=== PATIENT | male | born 1945 | race Caucasian/White ===

== ENCOUNTER 2021-05-09 10:49 | Inpatient (IN) ==
[2021-05-09] MEDS ORDERED: NITROGLYCERIN SL 0.4 MG TABLET SL PRN (11:37)
[2021-05-09] MEDS ORDERED: NICOTINE 14 MG/24 HR PATCH TRANSDERM PRN (11:37)
[2021-05-09] MEDS ORDERED: GLUCAGON 1 MG VIAL IM PRN (11:37)
[2021-05-09] MEDS ORDERED: DEXTROSE 50% 25 GM/50 ML VIAL IV PRN (11:37)
[2021-05-09] MEDS ORDERED: CLORAZEPATE 3.75 MG TABLET PO PRN (11:37)
[2021-05-09] MEDS ORDERED: MORPHINE 2 MG/1 ML SYRINGE IV PRN (11:37)
[2021-05-09] MEDS ORDERED: hydrALAZINE 20 MG/1 ML VIAL IV PRN (11:48)
[2021-05-09 16:57] LABS: Blood Urea Nitrogen 17 MG/DL (7-18); Calcium 8.9 MG/DL (8.5-10.1); Carbon Dioxide 29 MMOL/L (21-32); Glucose 91 MG/DL (74-106); Osmolality,Calculated 284.1 MOS/KG (273-304); Potassium 3.9 MMOL/L (3.5-5.1); Sodium 142 MMOL/L (136-145)
[2021-05-09 17:15] LABS: Estimated Glom Filtration Rate 0 ML/MIN
[2021-05-10 05:06] LABS: Basophils % 0.2 % (0.0-0.8); Eosinophils # 0.1 10*3/uL (0.0-0.87); Eosinophils % 1.4 % (0.00-10.9); Hematocrit 34.6 VOL% (42.0-52.0); Immature Granulocytes % 0.4 %; Immature Granulocytes Absolute 0.02 #; Lymphocytes # 1.6 10*3/uL (1.4-4.0); Lymphocytes % 31.7 % (21.2-54.2); Mean Corpuscular HGB Conc 31.8 GM/DL (32-36); Mean Corpuscular Volume 97.2 FL (87-102); Mean Platelet Volume 14.1 FL (9.6-12.0); Neutrophils % 59.3 % (38.7-73.9); Red Blood Count 3.56 MC/CUMM (3.8-5.5); Red Cell Distribution Width 14.1 % (9.3-17.3)
[2021-05-10 05:13] LABS: Platelet Count 72 T/CUMM (130-400)
[2021-05-10 05:17] LABS: ABG Base Excess 1.1 MMOL/L (-2.5-2.5); ABG HCO3 25.4 MMOL/L (20-26); ABG Oxygen Saturation 98.4 % (95-100); ABG PCO2 40.6 MM HG (35-48); Allen Test Positive
[2021-05-10 05:31] LABS: Alanine Aminotransferase 18 U/L (16-61); Albumin 3.3 G/DL (3.4-5.0); Alkaline Phosphatase 63 U/L (45-117); Aspartate Amino Transferase 13 U/L (0-37); Blood Urea Nitrogen 15 MG/DL (7-18); Calcium 9.2 MG/DL (8.5-10.1); Carbon Dioxide 26 MMOL/L (21-32); Estimated Glom Filtration Rate 77 ML/MIN; Glucose 118 MG/DL (74-106); Osmolality,Calculated 282.3 MOS/KG (273-304); Potassium 3.9 MMOL/L (3.5-5.1); Sodium 141 MMOL/L (136-145); Total Protein 6.8 G/DL (6.4-8.2)
[2021-05-10 05:37] LABS: Microcytosis 1+; Ovalocytes Few; Platelet Estimate Decreased
[2021-05-10] MEDS: CHLORHEXIDINE 0.12% ORAL RINSE 60 ML BOTTLE SWISH/SPIT SCH ×2 (09:27→21:11)
[2021-05-10] MEDS: CHLORHEXIDINE 4% SOLN 118 ML BOTTLE TOP SCH ×3 (09:27→21:12)
[2021-05-10] MEDS: oxyCODONE/ACETAMINOPHEN 5-325 MG TABLET PO PRN ×2 (09:27→19:18)
[2021-05-10] MEDS ORDERED: SODIUM CHLORIDE 0.9% 1,000 ML IV SCH (12:00)
[2021-05-10] MEDS: GABAPENTIN 300 MG CAPSULE PO SCH ×2 (14:58→21:11)
[2021-05-11] MEDS ORDERED: VANCOMYCIN 500 MG VIAL ONE (04:45)
[2021-05-11] MEDS ORDERED: VANCOMYCIN 1,000 MG VIAL ONE (04:45)
[2021-05-11] MEDS ORDERED: PAPAVERINE 60 MG/2 ML VIAL ONE (04:45)
[2021-05-11] MEDS ORDERED: CEFUROXIME INJ 1,500 MG in SODIUM CHLORIDE 0.9% 100 ML IV ONE (05:00)
[2021-05-11] MEDS ORDERED: FAMOTIDINE 20 MG TABLET PO ONE (05:23)
[2021-05-11] MEDS ORDERED: DIAZEPAM 5 MG TABLET PO ONE (05:23)
[2021-05-11 05:51] LABS: Basophils % 0.2 % (0.0-0.8); Eosinophils # 0.1 10*3/uL (0.0-0.87); Eosinophils % 1.1 % (0.00-10.9); Hematocrit 32.3 VOL% (42.0-52.0); Hemoglobin 10.8 GM/DL (14.0-18.0); Immature Granulocytes % 0.4 %; Immature Granulocytes Absolute 0.02 #; Lymphocytes # 1.8 10*3/uL (1.4-4.0); Lymphocytes % 37.4 % (21.2-54.2); Mean Corpuscular HGB Conc 33.4 GM/DL (32-36); Mean Corpuscular Volume 93.1 FL (87-102); Mean Platelet Volume 14.1 FL (9.6-12.0); Monocytes % 6.9 % (1.7-12.7); Platelet Count 76 T/CUMM (130-400); Red Blood Count 3.47 MC/CUMM (3.8-5.5); Red Cell Distribution Width 13.8 % (9.3-17.3); White Blood Count 4.8 T/CUMM (4-12)
[2021-05-11] MEDS ORDERED: VECURONIUM 10 MG VIAL IV ONE ×4 (06:05→07:57)
[2021-05-11] MEDS ORDERED: MIDAZOLAM 10 MG/2 ML VIAL ONE ×4 (06:05→09:10)
[2021-05-11] MEDS ORDERED: ETOMIDATE 40 MG/20 ML VIAL IV ONE (06:06)
[2021-05-11] MEDS ORDERED: SUFentanil 250 MCG/5 ML AMP ONE (06:06)
[2021-05-11 06:12] LABS: Hypochromasia Slight; Microcytosis Slight; Platelet Estimate Decreased
[2021-05-11] MEDS ORDERED: LIDOCAINE 2% 5 ML VIAL ONE ×2 (06:18→10:29)
[2021-05-11] MEDS ORDERED: SODIUM CHLORIDE 0.9% 1,000 ML IV ONE (06:18)
[2021-05-11] MEDS ORDERED: LACTATED RINGERS 1,000 ML IV ONE (06:18)
[2021-05-11] MEDS ORDERED: SEVOFLURANE 1 UNIT/15 MINUTE INH ONE ×2 (06:18→09:15)
[2021-05-11] MEDS ORDERED: SODIUM CHLORIDE 0.9% 250 ML IV ONE ×2 (06:18→09:16)
[2021-05-11] MEDS ORDERED: AMINOCAPROIC ACID 5,000 MG/20 ML VIAL ONE (06:18)
[2021-05-11] MEDS ORDERED: PHENYLEPHRINE 10 MG/1 ML VIAL IV ONE (06:19)
[2021-05-11 06:31] LABS: Calcium 9.5 MG/DL (8.5-10.1); Osmolality,Calculated 274.7 MOS/KG (273-304); Potassium 4.2 MMOL/L (3.5-5.1)
[2021-05-11] MEDS ORDERED: ePHEDrine 50 MG/ML VIAL ONE (07:01)
[2021-05-11 07:41] LABS: ABG Base Excess -0.5 MMOL/L (-2.5-2.5); ABG PCO2 39.1 MM HG (35-48); ABG PH 7.398 (7.35-7.45); ABG TCO2 21.9 MMOL/L (23-27); Glucose Heart Surgery 128 MG/DL (74-106); Hematocrit Heart Surgery 31.9 PERCENT (42-52); Hemoglobin Heart Surgery 10.3 G/DL (14.0-18.0); Ionized Calcium Arterial 1.25 MMOL/L (1.21-1.46); PCO2 Patient Temp Arterial 39.1 MMHG; PH Patient Temp Arterial 7.398; Patient Temperature 37 CELCIUS; Potassium Heart/CVR 3.6 MMOL/L (3.5-5.1); Sodium Heart/CVR 140 MMOL/L (135-145)
[2021-05-11 07:53] LABS: Bilirubin,Urine Negative (Negative); Blood, Urine Small mg/dL (Negative); Glucose,Urine (UA) Negative (Negative); Ketones,Urine Negative (Negative); Mucus,Urine Occasional /LPF (Occasional); Nitrite,Urine Negative (Negative); Protein,Urine Negative; RBC,Urine 1 /HPF (0-4); Urine Appearance CLEAR (Clear); Urine Color Straw (Yellow); Urine Specific Gravity 1.009 (1.001-1.035); Urine Urobilinogen < 2.0 EU/DL (0.2-1.0)
[2021-05-11] MEDS ORDERED: NITROPRUSSIDE 50 MG/2 ML VIAL ONE (08:20)
[2021-05-11] MEDS ORDERED: PHENYLEPHRINE DRIP 40 MG/250 ML PREMIX IV ONE (08:20)
[2021-05-11] MEDS ORDERED: POTASSIUM CHLORIDE RIDER 20 MEQ/100 ML PREMIX IV ONE (08:20)
[2021-05-11] MEDS ORDERED: SUFentanil 50 MCG/ML AMP ONE ×3 (08:44→10:23)
[2021-05-11] MEDS ORDERED: CALCIUM CHLORIDE 1,000 MG/10 ML VIAL IV ONE (09:10)
[2021-05-11] MEDS ORDERED: NITROGLYCERIN DRIP 50 MG/250 ML BOTTLE IV ONE (09:11)
[2021-05-11 09:13] LABS: Hematocrit Heart Surgery 22.6 PERCENT (42-52); Hemoglobin Heart Surgery 7.2 G/DL (14.0-18.0); PCO2 Patient Temp Venous 33.8 MM HG; PH Patient Temp Venous 7.456; PO2 Patient Temp Venous 37.8 MM HG; Potassium Heart/CVR 4.5 MMOL/L (3.5-5.1); VBG Base Excess 0.3 MEQ/L (0-4); VBG HCO3 24.5 MEQ/L (24-28); VBG Oxygen Saturation 81.5 %; VBG PCO2 37.3 MMHG (41-51); VBG PH 7.426; VBG PO2 43.4 MMHG (17-40); VBG Total CO2 23.1 MMOL/L
[2021-05-11] MEDS ORDERED: HEPARIN/NACL 0.9% 2 UNITS/ML 1,000 UNIT/500 ML BAG IV ONE (09:22)
[2021-05-11] MEDS ORDERED: MINERAL OIL/PETROLATUM OPH OINT 3.5 GM TUBE ONE (09:44)
[2021-05-11 09:50] LABS: Hematocrit Heart Surgery 23.4 PERCENT (42-52); Hemoglobin Heart Surgery 7.5 G/DL (14.0-18.0); PCO2 Patient Temp Venous 30.6 MM HG; PH Patient Temp Venous 7.483; Potassium Heart/CVR 3.7 MMOL/L (3.5-5.1); VBG Base Excess -0.1 MEQ/L (0-4); VBG HCO3 24.2 MEQ/L (24-28); VBG Oxygen Saturation 82.8 %; VBG PCO2 33.7 MMHG (41-51); VBG PH 7.453; VBG PO2 43.6 MMHG (17-40); VBG Total CO2 22.1 MMOL/L
[2021-05-11] MEDS ORDERED: DEXTROSE 5% KCL 20 MEQ 20 MEQ/1,000 ML BAG IV ONE (10:29)
[2021-05-11] MEDS ORDERED: PROTAMINE SULFATE 250 MG/25 ML VIAL IV ONE (10:29)
[2021-05-11] MEDS ORDERED: MAGNESIUM SULFATE 5 GM/10 ML VIAL IV ONE (10:29)
[2021-05-11] MEDS ORDERED: MANNITOL 100 GM/500 ML BAG IV ONE (10:29)
[2021-05-11] MEDS ORDERED: ALBUMIN 25% 25 GM/100 ML VIAL IV ONE (10:29)
[2021-05-11] MEDS ORDERED: methylPREDNISolone SOD SUC 1,000 MG/8 ML VIAL ONE (10:29)
[2021-05-11] MEDS ORDERED: HEPARIN 10,000 UNIT/10 ML VIAL ONE (10:30)
[2021-05-11] MEDS ORDERED: FUROSEMIDE 20 MG/2 ML VIAL ONE (10:30)
[2021-05-11] MEDS ORDERED: SODIUM BICARBONATE 50 MEQ/50 ML VIAL IV ONE (10:30)
[2021-05-11] MEDS ORDERED: PROTAMINE SULFATE 50 MG/5 ML VIAL IV ONE (10:30)
[2021-05-11 10:40] LABS: ABG Base Excess 1.4 MMOL/L (-2.5-2.5); ABG HCO3 25.7 MMOL/L (20-26); ABG PCO2 40.1 MM HG (35-48); ABG PH 7.419 (7.35-7.45); ABG TCO2 23.9 MMOL/L (23-27); Glucose Heart Surgery 272 MG/DL (74-106); Hematocrit Heart Surgery 27.4 PERCENT (42-52); Hemoglobin Heart Surgery 8.8 G/DL (14.0-18.0); Ionized Calcium Arterial 1.18 MMOL/L (1.21-1.46); PCO2 Patient Temp Arterial 40.1 MMHG; PH Patient Temp Arterial 7.419; Patient Temperature 37 CELCIUS; Potassium Heart/CVR 3.6 MMOL/L (3.5-5.1); Sodium Heart/CVR 137 MMOL/L (135-145)
[2021-05-11] MEDS ORDERED: SODIUM CHLORIDE 0.45% 1,000 ML IV SCH ×2 (11:16)
[2021-05-11] MEDS ORDERED: DEXTROSE 50% 25 GM/50 ML VIAL IV PRN ×2 (11:16)
[2021-05-11] MEDS ORDERED: INSULIN REGULAR 100 UNIT/ML IV PRN (11:16)
[2021-05-11] MEDS ORDERED: MAGNESIUM SULF RIDER 4 GM/100 ML PREMIX IV PRN (11:16)
[2021-05-11] MEDS ORDERED: IBUPROFEN 100 MG/5 ML UDCUP PO PRN (11:16)
[2021-05-11] MEDS ORDERED: ALBUMIN 5% 12.5 GM/250 ML VIAL IV PRN (11:16)
[2021-05-11] MEDS ORDERED: PHENYLEPHRINE DRIP 40 MG/250 ML PREMIX IV PRN (11:16)
[2021-05-11] MEDS ORDERED: VECURONIUM 10 MG VIAL IV PRN ×2 (11:16)
[2021-05-11] MEDS ORDERED: INSULIN REGULAR 100 UNIT/ML IV ONE (11:16)
[2021-05-11] MEDS ORDERED: MAGNESIUM SULF RIDER 2 GM/50 ML PREMIX IV PRN (11:16)
[2021-05-11] MEDS ORDERED: MIDAZOLAM 2 MG/2 ML VIAL IV PRN (11:16)
[2021-05-11] MEDS ORDERED: LACTATED RINGERS 250 ML IV PRN (11:16)
[2021-05-11] MEDS ORDERED: INSULIN REGULAR DRIP 100 ML IV SCH (11:16)
[2021-05-11] MEDS ORDERED: CALCIUM CHLORIDE 1,000 MG/10 ML SYRINGE IV PRN (11:16)
[2021-05-11] MEDS ORDERED: MIDAZOLAM 10 MG/2 ML VIAL IV PRN (11:16)
[2021-05-11] MEDS ORDERED: CHLORHEXIDINE 4% SOLN 118 ML BOTTLE TOP PRN (11:16)
[2021-05-11] MEDS ORDERED: NITROPRUSSIDE 100 MG in DEXTROSE 5% 250 ML IV PRN (11:16)
[2021-05-11] MEDS ORDERED: ONDANSETRON 4 MG/2 ML VIAL IV PRN (11:16)
[2021-05-11 11:42] LABS: ABG Base Excess 3.1 MMOL/L (-2.5-2.5); ABG Oxygen Saturation 98.6 % (95-100); ABG PCO2 38.5 MM HG (35-48); ABG PH 7.463 (7.35-7.45); ABG PO2 205.6 MM HG (80-95); ABG TCO2 28.1 MMOL/L (23-27); Glucose Heart Surgery 258 MG/DL (74-106); Hemoglobin Heart Surgery 10.4 G/DL (14.0-18.0); Potassium Heart/CVR 3.8 MMOL/L (3.5-5.1)
[2021-05-11 11:47] LABS: Basophils % 0.1 % (0.0-0.8); Eosinophils % 0.1 % (0.00-10.9); Hematocrit 28.6 VOL% (42.0-52.0); Hemoglobin 9.5 GM/DL (14.0-18.0); Immature Granulocytes % 0.7 %; Immature Granulocytes Absolute 0.05 #; Lymphocytes # 0.6 10*3/uL (1.4-4.0); Lymphocytes % 9.3 % (21.2-54.2); Mean Corpuscular HGB Conc 33.2 GM/DL (32-36); Mean Corpuscular Volume 91.1 FL (87-102); Mean Platelet Volume 12.8 FL (9.6-12.0); Neutrophils % 85.8 % (38.7-73.9); Platelet Count 85 T/CUMM (130-400); Red Blood Count 3.14 MC/CUMM (3.8-5.5); Red Cell Distribution Width 14.1 % (9.3-17.3); White Blood Count 6.8 T/CUMM (4-12)
[2021-05-11] MEDS: POTASSIUM CHLORIDE RIDER 20 MEQ/100 ML PREMIX IV PRN ×3 (11:55→17:32)
[2021-05-11 11:56] LABS: INR 1.1; PT Patient Result 12.4 SECS (10.5-12.0); Partial Thromboplastin Time 27.1 SECS (23.9-33.8)
[2021-05-11 12:08] LABS: Anisocytosis 1+; Band Neutrophils 9 % (0-10); Eosinophils 1 % (0-10); Lymphocytes 7 % (20-55); Platelet Estimate Decreased; Segmented Neutrophils 79 % (50-85); Total Cells Counted 100
[2021-05-11 12:09] LABS: Misc Morphology 5S; Ovalocytes Few
[2021-05-11 12:16] LABS: CKMB % 5.3 %
[2021-05-11 12:17] LABS: High Sensitive Troponin I* 3128.2 ng/L (0-78)
[2021-05-11 12:23] LABS: Albumin 3.7 G/DL (3.4-5.0); Bilirubin,Total 0.8 MG/DL (0.20-1.00); Calcium 9.7 MG/DL (8.5-10.1); Osmolality,Calculated 286.4 MOS/KG (273-304); Potassium 3.8 MMOL/L (3.5-5.1); Total Protein 6.6 G/DL (6.4-8.2)
[2021-05-11] MEDS: LACTATED RINGERS 1,000 ML IV PRN ×3 (12:45→17:38)
[2021-05-11] MEDS: POTASSIUM CHLORIDE RIDER 10 MEQ/100 ML PREMIX IV PRN ×2 (13:29→18:03)
[2021-05-11 14:01] LABS: ABG Base Excess 4.4 MMOL/L (-2.5-2.5); ABG HCO3 28.4 MMOL/L (20-26); ABG Oxygen Saturation 99.6 % (95-100); ABG PCO2 46.5 MM HG (35-48); ABG PH 7.412 (7.35-7.45); ABG TCO2 27.1 MMOL/L (23-27); Glucose Heart Surgery 224 MG/DL (74-106); Hematocrit Heart Surgery 29.3 PERCENT (42-52); Hemoglobin Heart Surgery 9.5 G/DL (14.0-18.0); Potassium Heart/CVR 3.8 MMOL/L (3.5-5.1)
[2021-05-11] MEDS ORDERED: DEXMEDETOMIDINE 200 MCG in SODIUM CHLORIDE 0.9% 48 ML IV PRN (15:02)
[2021-05-11] MEDS: MORPHINE 10 MG/1 ML VIAL IV PRN (15:15)
[2021-05-11 15:54] LABS: ABG Base Excess 3.6 MMOL/L (-2.5-2.5); ABG HCO3 27.7 MMOL/L (20-26); ABG Oxygen Saturation 99.3 % (95-100); ABG PCO2 46.9 MM HG (35-48); ABG TCO2 26.5 MMOL/L (23-27); Glucose Heart Surgery 216 MG/DL (74-106); Hematocrit Heart Surgery 30.4 PERCENT (42-52); Hemoglobin Heart Surgery 9.8 G/DL (14.0-18.0)
[2021-05-11 17:06] LABS: ABG Base Excess 4.3 MMOL/L (-2.5-2.5); ABG HCO3 28.3 MMOL/L (20-26); ABG Oxygen Saturation 99.3 % (95-100); ABG PCO2 45.9 MM HG (35-48); ABG PH 7.415 (7.35-7.45); Glucose Heart Surgery 191 MG/DL (74-106); Hematocrit Heart Surgery 28.7 PERCENT (42-52); Hemoglobin Heart Surgery 9.3 G/DL (14.0-18.0); Potassium Heart/CVR 3.9 MMOL/L (3.5-5.1)
[2021-05-11 18:05] LABS: ABG Base Excess 3.9 MMOL/L (-2.5-2.5); ABG HCO3 27.9 MMOL/L (20-26); ABG Oxygen Saturation 99.5 % (95-100); ABG PH 7.462 (7.35-7.45); ABG TCO2 25.4 MMOL/L (23-27)
[2021-05-11] MEDS: CEFUROXIME INJ 1,500 MG in SODIUM CHLORIDE 0.9% 100 ML IV SCH (18:40)
[2021-05-11 19:06] LABS: ABG Base Excess 2.4 MMOL/L (-2.5-2.5); ABG HCO3 26.6 MMOL/L (20-26); ABG Oxygen Saturation 98.6 % (95-100); ABG PCO2 43.1 MM HG (35-48); ABG TCO2 24.8 MMOL/L (23-27); Glucose Heart Surgery 184 MG/DL (74-106); Hematocrit Heart Surgery 31.8 PERCENT (42-52); Hemoglobin Heart Surgery 10.3 G/DL (14.0-18.0); Potassium Heart/CVR 4.2 MMOL/L (3.5-5.1)
[2021-05-11 19:28] LABS: CKMB % 4.8 %
[2021-05-11] MEDS ORDERED: FUROSEMIDE 40 MG/4 ML VIAL IV PRN (19:28)
[2021-05-11] MEDS: GABAPENTIN 300 MG CAPSULE PO SCH (19:36)
[2021-05-11] MEDS: CHLORHEXIDINE 0.12% ORAL RINSE 60 ML BOTTLE SWISH/SPIT SCH (19:36)
[2021-05-11] MEDS: KETOROLAC 30 MG/1 ML VIAL IV SCH (19:46)
[2021-05-11] MEDS ORDERED: CHLORHEXIDINE 0.12% ORAL RINSE 60 ML BOTTLE SWISH/SPIT SCH (21:00)
[2021-05-11] MEDS ORDERED: DEXMEDETOMIDINE 400 MCG in SODIUM CHLORIDE 0.9% 96 ML IV PRN (22:00)
[2021-05-12 00:20] LABS: ABG Base Excess 3.5 MMOL/L (-2.5-2.5); ABG HCO3 27.4 MMOL/L (20-26); ABG Oxygen Saturation 97.4 % (95-100); ABG PCO2 38.9 MM HG (35-48); ABG PH 7.465 (7.35-7.45); ABG PO2 99.1 MM HG (80-95); ABG TCO2 28.6 MMOL/L (23-27); Glucose Heart Surgery 142 MG/DL (74-106); Hemoglobin Heart Surgery 10.9 G/DL (14.0-18.0); Potassium Heart/CVR 3.9 MMOL/L (3.5-5.1)
[2021-05-12] MEDS: KETOROLAC 30 MG/1 ML VIAL IV SCH ×4 (00:53→18:33)
[2021-05-12] MEDS: MORPHINE 10 MG/1 ML VIAL IV PRN (01:33)
[2021-05-12] MEDS: POTASSIUM CHLORIDE RIDER 20 MEQ/100 ML PREMIX IV PRN (01:33)
[2021-05-12] MEDS: ALBUTEROL/IPRATROPIUM 3 ML NEB RESP TX SCH ×2 (03:01→19:34)
[2021-05-12 03:56] LABS: ABG Base Excess 2.4 MMOL/L (-2.5-2.5); ABG Oxygen Saturation 96.8 % (95-100); ABG PCO2 36.5 MM HG (35-48); ABG PO2 89.4 MM HG (80-95); ABG TCO2 27.1 MMOL/L (23-27); Glucose Heart Surgery 159 MG/DL (74-106); Hemoglobin Heart Surgery 10.8 G/DL (14.0-18.0); Potassium Heart/CVR 4.2 MMOL/L (3.5-5.1)
[2021-05-12] MEDS ORDERED: INSULIN REGULAR 100 UNIT/ML SUBCUT SCH ×2 (04:00→06:00)
[2021-05-12 04:02] LABS: Hematocrit 30.9 VOL% (42.0-52.0); Hemoglobin 10.2 GM/DL (14.0-18.0); Immature Granulocytes % 0.6 %; Immature Granulocytes Absolute 0.05 #; Lymphocytes # 0.7 10*3/uL (1.4-4.0); Lymphocytes % 8.6 % (21.2-54.2); Mean Corpuscular Volume 92.5 FL (87-102); Mean Platelet Volume 13.4 FL (9.6-12.0); Neutrophils % 86.8 % (38.7-73.9); Red Blood Count 3.34 MC/CUMM (3.8-5.5); Red Cell Distribution Width 14.3 % (9.3-17.3); White Blood Count 8.5 T/CUMM (4-12)
[2021-05-12 04:03] LABS: Platelet Count 82 T/CUMM (130-400)
[2021-05-12 04:21] LABS: Lymphocytes 7 % (20-55); Platelet Estimate Decreased; Segmented Neutrophils 90 % (50-85); Total Cells Counted 100
[2021-05-12 04:22] LABS: Albumin 3.5 G/DL (3.4-5.0); Bilirubin,Direct 0.1 MG/DL (0.0-0.20); Bilirubin,Total 0.9 MG/DL (0.20-1.00); CKMB % 4.2 %; Calcium 9.1 MG/DL (8.5-10.1); Hypochromasia 1+; Microcytosis 1+; Osmolality,Calculated 276.8 MOS/KG (273-304); Potassium 4.3 MMOL/L (3.5-5.1); Total Protein 6.1 G/DL (6.4-8.2)
[2021-05-12 04:23] LABS: High Sensitive Troponin I* 6298.2 ng/L (0-78)
[2021-05-12] MEDS: CEFUROXIME INJ 1,500 MG in SODIUM CHLORIDE 0.9% 100 ML IV SCH ×2 (06:28→18:29)
[2021-05-12] MEDS ORDERED: MAGNESIUM SULF RIDER 4 GM/100 ML PREMIX IV PRN (08:23)
[2021-05-12] MEDS ORDERED: ALUMINUM/MAGNES/SIMETH MAX STR 30 ML UDCUP PO PRN (08:23)
[2021-05-12] MEDS ORDERED: ZALEPLON 5 MG CAPSULE PO PRN (08:23)
[2021-05-12] MEDS ORDERED: DEXTROSE 50% 25 GM/50 ML VIAL IV PRN (08:23)
[2021-05-12] MEDS ORDERED: GLUCAGON 1 MG VIAL IM PRN (08:23)
[2021-05-12] MEDS ORDERED: ONDANSETRON 4 MG/2 ML VIAL IV PRN (08:23)
[2021-05-12] MEDS ORDERED: IBUPROFEN 800 MG TABLET PO PRN (08:23)
[2021-05-12] MEDS ORDERED: MAGNESIUM SULF RIDER 2 GM/50 ML PREMIX IV PRN (08:23)
[2021-05-12] MEDS ORDERED: MAGNESIUM HYDROXIDE SUSP 30 ML UDCUP PO PRN (08:23)
[2021-05-12] MEDS: FINASTERIDE 5 MG TABLET PO SCH (09:32)
[2021-05-12] MEDS: ROSUVASTATIN 10 MG TABLET PO SCH (09:32)
[2021-05-12] MEDS: GABAPENTIN 300 MG CAPSULE PO SCH ×3 (09:32→22:33)
[2021-05-12] MEDS: DOCUSATE SODIUM 100 MG CAPSULE PO SCH ×2 (09:32→10:25)
[2021-05-12] MEDS: SODIUM CHLOR 0.45% KCL 20 MEQ 20 MEQ/1,000 ML BAG IV SCH (09:32)
[2021-05-12] MEDS: TAMSULOSIN 0.4 MG CAPSULE PO SCH (09:33)
[2021-05-12] MEDS: amLODIPine 5 MG TABLET PO SCH (09:33)
[2021-05-12] MEDS: ASPIRIN EC 81 MG TABLET PO SCH (09:33)
[2021-05-12] MEDS: PANTOPRAZOLE 40 MG TABLET PO SCH (09:33)
[2021-05-12] MEDS: FERROUS SULFATE 325 MG TABLET PO SCH (09:34)
[2021-05-12] MEDS: CHLORHEXIDINE 0.12% ORAL RINSE 60 ML BOTTLE SWISH/SPIT SCH ×2 (09:35→22:39)
[2021-05-12] MEDS: oxyCODONE/ACETAMINOPHEN 5-325 MG TABLET PO PRN ×2 (10:24→22:34)
[2021-05-12 12:07] LABS: CKMB % 2.6 %; High Sensitive Troponin I* 5006.6 ng/L (0-78)
[2021-05-13] MEDS: KETOROLAC 30 MG/1 ML VIAL IV SCH ×4 (00:37→19:15)
[2021-05-13] MEDS: ALBUTEROL/IPRATROPIUM 3 ML NEB RESP TX SCH ×4 (01:55→19:21)
[2021-05-13 05:24] LABS: Hematocrit 27.1 VOL% (42.0-52.0); Hemoglobin 8.8 GM/DL (14.0-18.0); Immature Granulocytes % 0.6 %; Immature Granulocytes Absolute 0.04 #; Lymphocytes % 13.9 % (21.2-54.2); Mean Corpuscular HGB Conc 32.5 GM/DL (32-36); Mean Corpuscular Volume 94.4 FL (87-102); Mean Platelet Volume 13.5 FL (9.6-12.0); Monocytes % 6.4 % (1.7-12.7); Neutrophils % 79.1 % (38.7-73.9); Platelet Count 75 T/CUMM (130-400); Red Blood Count 2.87 MC/CUMM (3.8-5.5); Red Cell Distribution Width 14.6 % (9.3-17.3); White Blood Count 7.2 T/CUMM (4-12)
[2021-05-13 05:51] LABS: Albumin 3.1 G/DL (3.4-5.0); Bilirubin,Direct 0.1 MG/DL (0.0-0.20); Bilirubin,Total 0.6 MG/DL (0.20-1.00); Calcium 8.7 MG/DL (8.5-10.1); Osmolality,Calculated 289.3 MOS/KG (273-304); Potassium 3.8 MMOL/L (3.5-5.1); Total Protein 5.7 G/DL (6.4-8.2)
[2021-05-13 05:55] LABS: Alanine Aminotransferase 22 U/L (16-61); Alkaline Phosphatase 46 U/L (45-117); Aspartate Amino Transferase 23 U/L (0-37); Bilirubin,Indirect 0.6 MG/DL (0.0-1.0); Total Protein 5.6 G/DL (6.4-8.2)
[2021-05-13] MEDS ORDERED: FUROSEMIDE 40 MG/4 ML VIAL IV ONE (06:00)
[2021-05-13] MEDS: TAMSULOSIN 0.4 MG CAPSULE PO SCH (08:15)
[2021-05-13] MEDS: oxyCODONE/ACETAMINOPHEN 5-325 MG TABLET PO PRN ×2 (08:15→19:14)
[2021-05-13] MEDS ORDERED: traZODone 50 MG TABLET PO PRN (09:28)
[2021-05-13] MEDS: DOCUSATE SODIUM 100 MG CAPSULE PO SCH (09:29)
[2021-05-13] MEDS: FERROUS SULFATE 325 MG TABLET PO SCH (09:29)
[2021-05-13] MEDS: PANTOPRAZOLE 40 MG TABLET PO SCH (09:29)
[2021-05-13] MEDS: ASPIRIN EC 81 MG TABLET PO SCH (09:29)
[2021-05-13] MEDS: amLODIPine 5 MG TABLET PO SCH (09:29)
[2021-05-13] MEDS: GABAPENTIN 300 MG CAPSULE PO SCH ×3 (09:29→20:29)
[2021-05-13] MEDS: FUROSEMIDE 40 MG TABLET PO SCH (09:29)
[2021-05-13] MEDS: ROSUVASTATIN 10 MG TABLET PO SCH (09:29)
[2021-05-13] MEDS: CHLORHEXIDINE 0.12% ORAL RINSE 60 ML BOTTLE SWISH/SPIT SCH ×2 (09:30→20:29)
[2021-05-13] MEDS: FINASTERIDE 5 MG TABLET PO SCH (09:35)
[2021-05-13] MEDS: HYDROmorphone 2 MG/1 ML VIAL IV PRN (09:51)
[2021-05-13] MEDS: SODIUM CHLOR 0.45% KCL 20 MEQ 20 MEQ/1,000 ML BAG IV SCH (17:00)
[2021-05-13] MEDS: busPIRone 10 MG TABLET PO SCH (20:28)
[2021-05-14] MEDS: ALBUTEROL/IPRATROPIUM 3 ML NEB RESP TX SCH ×4 (00:05→20:05)
[2021-05-14] MEDS: KETOROLAC 30 MG/1 ML VIAL IV SCH ×4 (00:36→19:06)
[2021-05-14] MEDS: oxyCODONE/ACETAMINOPHEN 5-325 MG TABLET PO PRN ×3 (00:41→13:52)
[2021-05-14 05:54] LABS: Eosinophils % 0.6 % (0.00-10.9); Hematocrit 29.7 VOL% (42.0-52.0); Hemoglobin 9.5 GM/DL (14.0-18.0); Immature Granulocytes % 0.4 %; Immature Granulocytes Absolute 0.03 #; Lymphocytes # 2.2 10*3/uL (1.4-4.0); Lymphocytes % 32.4 % (21.2-54.2); Mean Corpuscular Volume 96.1 FL (87-102); Mean Platelet Volume 14.1 FL (9.6-12.0); Monocytes % 7.6 % (1.7-12.7); Platelet Count 73 T/CUMM (130-400); Red Blood Count 3.09 MC/CUMM (3.8-5.5); Red Cell Distribution Width 14.3 % (9.3-17.3); White Blood Count 6.8 T/CUMM (4-12)
[2021-05-14 06:01] LABS: Albumin 3.2 G/DL (3.4-5.0); Bilirubin,Direct 0.15 MG/DL (0.0-0.20); Bilirubin,Total 0.6 MG/DL (0.20-1.00); Calcium 8.9 MG/DL (8.5-10.1); Osmolality,Calculated 286.1 MOS/KG (273-304); Potassium 3.4 MMOL/L (3.5-5.1)
[2021-05-14 06:02] LABS: Alanine Aminotransferase 24 U/L (16-61); Albumin 3.3 G/DL (3.4-5.0); Alkaline Phosphatase 49 U/L (45-117); Aspartate Amino Transferase 21 U/L (0-37); Bilirubin,Indirect 0.5 MG/DL (0.0-1.0)
[2021-05-14] MEDS: HYDROmorphone 2 MG/1 ML VIAL IV PRN ×2 (07:54→17:28)
[2021-05-14] MEDS: TAMSULOSIN 0.4 MG CAPSULE PO SCH (07:57)
[2021-05-14] MEDS: GABAPENTIN 300 MG CAPSULE PO SCH ×3 (09:11→20:37)
[2021-05-14] MEDS: POLYETHYLENE GLYCOL POWDER 17 GM PACK PO SCH (09:11)
[2021-05-14] MEDS: DOCUSATE SODIUM 100 MG CAPSULE PO SCH (09:11)
[2021-05-14] MEDS: busPIRone 10 MG TABLET PO SCH ×2 (09:11→20:37)
[2021-05-14] MEDS: POTASSIUM CHLORIDE 20 MEQ TABLET PO PRN ×2 (09:11→09:15)
[2021-05-14] MEDS: FERROUS SULFATE 325 MG TABLET PO SCH (09:12)
[2021-05-14] MEDS: amLODIPine 5 MG TABLET PO SCH (09:12)
[2021-05-14] MEDS: ROSUVASTATIN 10 MG TABLET PO SCH (09:12)
[2021-05-14] MEDS: PANTOPRAZOLE 40 MG TABLET PO SCH (09:12)
[2021-05-14] MEDS: ASPIRIN EC 81 MG TABLET PO SCH (09:12)
[2021-05-14] MEDS: FINASTERIDE 5 MG TABLET PO SCH (09:12)
[2021-05-14] MEDS: FUROSEMIDE 40 MG TABLET PO SCH (09:12)
[2021-05-14] MEDS: CHLORHEXIDINE 0.12% ORAL RINSE 60 ML BOTTLE SWISH/SPIT SCH ×2 (13:35→20:38)
[2021-05-15] MEDS: HYDROmorphone 2 MG/1 ML VIAL IV PRN ×4 (00:08→22:09)
[2021-05-15] MEDS: ALBUTEROL/IPRATROPIUM 3 ML NEB RESP TX SCH ×4 (01:32→19:35)
[2021-05-15] MEDS: KETOROLAC 30 MG/1 ML VIAL IV SCH ×4 (01:43→19:26)
[2021-05-15 05:06] LABS: Basophils % 0.2 % (0.0-0.8); Eosinophils # 0.1 10*3/uL (0.0-0.87); Eosinophils % 2.3 % (0.00-10.9); Hematocrit 29.1 VOL% (42.0-52.0); Hemoglobin 9.4 GM/DL (14.0-18.0); Immature Granulocytes % 0.5 %; Immature Granulocytes Absolute 0.03 #; Lymphocytes # 1.8 10*3/uL (1.4-4.0); Lymphocytes % 31.8 % (21.2-54.2); Mean Corpuscular HGB Conc 32.3 GM/DL (32-36); Mean Corpuscular Volume 95.4 FL (87-102); Mean Platelet Volume 13.4 FL (9.6-12.0); Monocytes % 7.5 % (1.7-12.7); Neutrophils % 57.7 % (38.7-73.9); Red Blood Count 3.05 MC/CUMM (3.8-5.5); Red Cell Distribution Width 14.3 % (9.3-17.3); White Blood Count 5.7 T/CUMM (4-12)
[2021-05-15 05:26] LABS: Calcium 8.7 MG/DL (8.5-10.1); Osmolality,Calculated 282.4 MOS/KG (273-304); Potassium 3.5 MMOL/L (3.5-5.1)
[2021-05-15 05:38] LABS: Platelet Count 67 T/CUMM (130-400)
[2021-05-15 07:06] LABS: Hypochromasia 1+; Ovalocytes 1+; Platelet Estimate Decreased
[2021-05-15] MEDS ORDERED: LACTULOSE 20 GM/30 ML UDCUP PO PRN (08:00)
[2021-05-15] MEDS: busPIRone 10 MG TABLET PO SCH ×2 (08:21→21:10)
[2021-05-15] MEDS: FINASTERIDE 5 MG TABLET PO SCH (08:21)
[2021-05-15] MEDS: oxyCODONE/ACETAMINOPHEN 5-325 MG TABLET PO PRN ×2 (08:21→13:25)
[2021-05-15] MEDS: ROSUVASTATIN 10 MG TABLET PO SCH (08:22)
[2021-05-15] MEDS: TAMSULOSIN 0.4 MG CAPSULE PO SCH (08:22)
[2021-05-15] MEDS: FERROUS SULFATE 325 MG TABLET PO SCH (08:22)
[2021-05-15] MEDS: DOCUSATE SODIUM 100 MG CAPSULE PO SCH (08:22)
[2021-05-15] MEDS: POLYETHYLENE GLYCOL POWDER 17 GM PACK PO SCH (08:22)
[2021-05-15] MEDS: GABAPENTIN 300 MG CAPSULE PO SCH ×3 (08:22→21:10)
[2021-05-15] MEDS: PANTOPRAZOLE 40 MG TABLET PO SCH (08:22)
[2021-05-15] MEDS: POTASSIUM CHLORIDE 20 MEQ TABLET PO PRN ×2 (08:22→09:37)
[2021-05-15] MEDS: ASPIRIN EC 81 MG TABLET PO SCH (08:22)
[2021-05-15] MEDS: amLODIPine 5 MG TABLET PO SCH (08:22)
[2021-05-15] MEDS: POTASSIUM CHLORIDE 10 MEQ TABLET PO SCH (09:37)
[2021-05-15] MEDS: CHLORHEXIDINE 0.12% ORAL RINSE 60 ML BOTTLE SWISH/SPIT SCH ×2 (09:41→21:12)
[2021-05-15] MEDS: FUROSEMIDE 40 MG TABLET PO SCH (09:41)
[2021-05-16] MEDS: oxyCODONE/ACETAMINOPHEN 5-325 MG TABLET PO PRN (02:19)
[2021-05-16] MEDS: KETOROLAC 30 MG/1 ML VIAL IV SCH ×3 (02:19→14:53)
[2021-05-16] MEDS: ALBUTEROL/IPRATROPIUM 3 ML NEB RESP TX SCH ×2 (02:40→06:49)
[2021-05-16 05:40] LABS: Basophils % 0.4 % (0.0-0.8); Eosinophils # 0.2 10*3/uL (0.0-0.87); Eosinophils % 3.4 % (0.00-10.9); Hematocrit 28.1 VOL% (42.0-52.0); Immature Granulocytes % 0.7 %; Immature Granulocytes Absolute 0.04 #; Lymphocytes # 1.5 10*3/uL (1.4-4.0); Lymphocytes % 26.1 % (21.2-54.2); Mean Corpuscular Volume 97.2 FL (87-102); Mean Platelet Volume 14.7 FL (9.6-12.0); Monocytes % 8.2 % (1.7-12.7); Neutrophils % 61.2 % (38.7-73.9); Platelet Count 67 T/CUMM (130-400); Red Blood Count 2.89 MC/CUMM (3.8-5.5); Red Cell Distribution Width 14.2 % (9.3-17.3); White Blood Count 5.6 T/CUMM (4-12)
[2021-05-16 06:07] LABS: Calcium 9.2 MG/DL (8.5-10.1); Osmolality,Calculated 287.5 MOS/KG (273-304)
[2021-05-16 06:08] LABS: Hypochromasia 1+
[2021-05-16 06:09] LABS: Microcytosis 1+; Ovalocytes Few; Platelet Estimate Decreased
[2021-05-16 06:13] LABS: Alanine Aminotransferase 19 U/L (16-61); Albumin 2.9 G/DL (3.4-5.0); Alkaline Phosphatase 56 U/L (45-117); Aspartate Amino Transferase 14 U/L (0-37); Bilirubin,Indirect 0.6 MG/DL (0.0-1.0); Blood Urea Nitrogen 34 MG/DL (7-18); Calcium 9.3 MG/DL (8.5-10.1); Carbon Dioxide 28 MMOL/L (21-32); Estimated Glom Filtration Rate 75 ML/MIN; Glucose 153 MG/DL (74-106); Osmolality,Calculated 287.5 MOS/KG (273-304); Sodium 139 MMOL/L (136-145); Total Protein 5.6 G/DL (6.4-8.2)
[2021-05-16] MEDS: HYDROmorphone 2 MG/1 ML VIAL IV PRN ×2 (06:26→23:13)
[2021-05-16] MEDS ORDERED: FUROSEMIDE 20 MG TABLET PO SCH (09:00)
[2021-05-16] MEDS: FINASTERIDE 5 MG TABLET PO SCH (09:30)
[2021-05-16] MEDS: busPIRone 10 MG TABLET PO SCH ×2 (09:39→23:11)
[2021-05-16] MEDS: PANTOPRAZOLE 40 MG TABLET PO SCH (09:40)
[2021-05-16] MEDS: ROSUVASTATIN 10 MG TABLET PO SCH (09:40)
[2021-05-16] MEDS: POTASSIUM CHLORIDE 20 MEQ TABLET PO PRN (09:40)
[2021-05-16] MEDS: ASPIRIN EC 81 MG TABLET PO SCH (09:40)
[2021-05-16] MEDS: FERROUS SULFATE 325 MG TABLET PO SCH (09:41)
[2021-05-16] MEDS: GABAPENTIN 300 MG CAPSULE PO SCH ×3 (09:41→23:12)
[2021-05-16] MEDS: DOCUSATE SODIUM 100 MG CAPSULE PO SCH (09:41)
[2021-05-16] MEDS: METOPROLOL TARTRATE 25 MG TABLET PO SCH (09:43)
[2021-05-16] MEDS: CHLORHEXIDINE 0.12% ORAL RINSE 60 ML BOTTLE SWISH/SPIT SCH ×2 (09:46→23:12)
[2021-05-16] MEDS: POTASSIUM CHLORIDE 10 MEQ TABLET PO SCH (10:28)
[2021-05-16] MEDS: POLYETHYLENE GLYCOL POWDER 17 GM PACK PO SCH (10:32)
[2021-05-16] MEDS: TAMSULOSIN 0.4 MG CAPSULE PO SCH (10:52)
[2021-05-16] MEDS: AMIODARONE 200 MG TABLET PO SCH ×2 (10:53→23:12)
[2021-05-17] MEDS: HYDROmorphone 2 MG/1 ML VIAL IV PRN ×2 (02:05→04:59)
[2021-05-17 05:46] LABS: Basophils % 0.3 % (0.0-0.8); Eosinophils # 0.3 10*3/uL (0.0-0.87); Eosinophils % 3.7 % (0.00-10.9); Hematocrit 30.1 VOL% (42.0-52.0); Hemoglobin 9.6 GM/DL (14.0-18.0); Immature Granulocytes % 0.8 %; Immature Granulocytes Absolute 0.06 #; Lymphocytes # 1.9 10*3/uL (1.4-4.0); Lymphocytes % 24.9 % (21.2-54.2); Mean Corpuscular HGB Conc 31.9 GM/DL (32-36); Mean Corpuscular Volume 96.8 FL (87-102); Mean Platelet Volume 13.9 FL (9.6-12.0); Monocytes % 8.2 % (1.7-12.7); Neutrophils % 62.1 % (38.7-73.9); Platelet Count 77 T/CUMM (130-400); Red Blood Count 3.11 MC/CUMM (3.8-5.5); Red Cell Distribution Width 14.6 % (9.3-17.3); White Blood Count 7.8 T/CUMM (4-12)
[2021-05-17 06:41] LABS: Alanine Aminotransferase 16 U/L (16-61); Albumin 3.2 G/DL (3.4-5.0); Alkaline Phosphatase 50 U/L (45-117); Aspartate Amino Transferase 15 U/L (0-37); Bilirubin,Indirect 1.8 MG/DL (0.0-1.0); Blood Urea Nitrogen 38 MG/DL (7-18); Calcium 9.7 MG/DL (8.5-10.1); Carbon Dioxide 28 MMOL/L (21-32); Estimated Glom Filtration Rate 67 ML/MIN; Glucose 103 MG/DL (74-106); Osmolality,Calculated 283.7 MOS/KG (273-304); Potassium 4.7 MMOL/L (3.5-5.1); Sodium 138 MMOL/L (136-145); Total Protein 6.1 G/DL (6.4-8.2)
[2021-05-17 06:42] LABS: Calcium 9.6 MG/DL (8.5-10.1); Osmolality,Calculated 281.8 MOS/KG (273-304); Potassium 4.6 MMOL/L (3.5-5.1)
[2021-05-17] MEDS: TAMSULOSIN 0.4 MG CAPSULE PO SCH (09:07)
[2021-05-17] MEDS: busPIRone 10 MG TABLET PO SCH ×2 (09:07→21:05)
[2021-05-17] MEDS: METOPROLOL TARTRATE 25 MG TABLET PO SCH (09:07)
[2021-05-17] MEDS: FERROUS SULFATE 325 MG TABLET PO SCH (09:07)
[2021-05-17] MEDS: FINASTERIDE 5 MG TABLET PO SCH (09:07)
[2021-05-17] MEDS: CHLORHEXIDINE 0.12% ORAL RINSE 60 ML BOTTLE SWISH/SPIT SCH ×2 (09:08→21:08)
[2021-05-17] MEDS: ROSUVASTATIN 10 MG TABLET PO SCH (09:08)
[2021-05-17] MEDS: GABAPENTIN 300 MG CAPSULE PO SCH ×3 (09:08→21:07)
[2021-05-17] MEDS: AMIODARONE 200 MG TABLET PO SCH ×2 (09:08→21:07)
[2021-05-17] MEDS: PANTOPRAZOLE 40 MG TABLET PO SCH (09:08)
[2021-05-17] MEDS: ASPIRIN EC 81 MG TABLET PO SCH (09:08)
[2021-05-17] MEDS: DOCUSATE SODIUM 100 MG CAPSULE PO SCH (09:08)
[2021-05-17] MEDS: traMADol 50 MG TABLET PO PRN ×3 (11:22→21:07)
[2021-05-17] MEDS: POLYETHYLENE GLYCOL POWDER 17 GM PACK PO SCH (12:30)
[2021-05-17] MEDS: METHOCARBAMOL 750 MG TABLET PO SCH (21:08)
[2021-05-18] MEDS: traMADol 50 MG TABLET PO PRN ×3 (02:29→11:20)
[2021-05-18 05:51] LABS: Calcium 8.9 MG/DL (8.5-10.1); Osmolality,Calculated 284.4 MOS/KG (273-304); Potassium 4.3 MMOL/L (3.5-5.1)
[2021-05-18] MEDS: METHOCARBAMOL 750 MG TABLET PO SCH (09:26)
[2021-05-18] MEDS: DOCUSATE SODIUM 100 MG CAPSULE PO SCH (09:26)
[2021-05-18] MEDS: POLYETHYLENE GLYCOL POWDER 17 GM PACK PO SCH (09:26)
[2021-05-18] MEDS: ROSUVASTATIN 10 MG TABLET PO SCH (09:26)
[2021-05-18] MEDS: ASPIRIN EC 81 MG TABLET PO SCH (09:26)
[2021-05-18] MEDS: METOPROLOL TARTRATE 25 MG TABLET PO SCH (09:27)
[2021-05-18] MEDS: PANTOPRAZOLE 40 MG TABLET PO SCH (09:27)
[2021-05-18] MEDS: AMIODARONE 200 MG TABLET PO SCH (09:27)
[2021-05-18] MEDS: TAMSULOSIN 0.4 MG CAPSULE PO SCH (09:27)
[2021-05-18] MEDS: GABAPENTIN 300 MG CAPSULE PO SCH (09:27)
[2021-05-18] MEDS: FERROUS SULFATE 325 MG TABLET PO SCH (09:27)
[2021-05-18] MEDS: FINASTERIDE 5 MG TABLET PO SCH (09:29)
[2021-05-18] MEDS: CHLORHEXIDINE 0.12% ORAL RINSE 60 ML BOTTLE SWISH/SPIT SCH (09:37)
[2021-05-18 10:33] VITALS: BP 122/76
[2021-05-18] MEDS: busPIRone 10 MG TABLET PO SCH (10:49)
== END 2021-05-18 12:37 | disposition home health service (06) | DRG 236 ==
LOC: N.TELEN 16:10 → N.CVR 05-11 10:30 → N.TELES 05-12 10:43